=== PATIENT | female | born 1955 | race Caucasian/White ===

== ENCOUNTER → 2018-03-10 | Outpatient (CLI) | payer BC ==
[~2018-03-10] MED LIST: ACIPHX20PT PO; BUTA1CAP51 PO; CLON0.5T66 PO; DICL1ADH32 TD; ESCI20TA38 PO; ESTR1VAG6 VG; FEXO-67 PO; LEVO25TA57 PO; MULT-865 PO; PRAS1TAB3 PO; RIZA5TAB30 PO; TOPI200T82 PO; [UNRECOGNIZED DRUG - CODE] PO; [UNRECOGNIZED DRUG - OTHER]; [UNRECOGNIZED DRUG - OTHER]; veramyst NS
--- NOTE | 2018-03-13 11:21 | RADIOLOGY IMAGING REPORT ---
FACILITY: [facility] PATIENT NAME: CATINA DELUCA : [id number] MR: [id number] V: [id number] EXAM DATE: [id number] ORDERING PHYSICIAN: GILBERTO BRISENO TECHNOLOGIST: Alem Cordova PROCEDURE:BILATERAL DIGITAL SCREENING MAMMOGRAM WITH CAD ASSISTED INTERPRETATION & 3D TOMOSYNTHESIS COMPARISON:Prior mammograms 12/02/16, 09/15/15, 11/15/13, 08/25/12, 03/19/11. INDICATIONS:SCREENING FINDINGS: The breasts are heterogeneously dense which may obscure small masses. The parenchymal pattern has remained stable allowing for difference in mammographic technique & patient positioning. There is no evidence of malignant appearing mass, malignant appearing calcifications or other secondary sign of malignancy in either breast. DIAGNOSTIC CATEGORY 1--NEGATIVE. RECOMMENDATIONS: ROUTINE MAMMOGRAM AND CLINICAL EVALUATION. IMPRESSION: BIRADS 1: Negative. No significant abnormality is seen. Dictated by: Ivon Fiore M.D. on 03/10/2018 at 12:33 Transcribed by: [email or web address] on 03/10/2018 at 13:07 Approved by: Ivon Fiore M.D. on 03/13/2018 at 11:21 [facility]
== END ==
LOC: MAMO 03:10
PROVIDERS: ATTEND Physician Assistant
DX: Z12.31 Encounter for screening mammogram for malignant neoplasm of breast (principal)
CPT/HCPCS: 77063; 77067